=== PATIENT | female | born 2000 | race Caucasian/White ===

== ENCOUNTER 2022-10-31 15:30 | Emergency (ER) | payer OTHER ==
[~2022-10-31] VITALS: Ht 154.9 cm; Wt 50.9 kg
[~2022-10-31 15:30] MED LIST: REGLAN 10MG10 MG/TAB PO; UNISOM25 MG PO
[2022-10-31 15:48] VITALS: BP 100/66; PULSE 107; TEMP 98.2
[2022-10-31 16:38] LABS: COLLECTION METHOD CLEAN CATCH
[2022-10-31 16:49] LABS: BASO # 0.1 K/mm3 (0.0-0.2); BASO % 0.3 % (0.0-2.0); EOS # 0.1 K/mm3 (0.0-0.7); EOS % 0.4 % (0.0-4.0); GRAN # 12.2 K/mm3 (1.4-6.5); GRAN % 78.2 % (42.2-75.2); HEMATOCRIT 37.5 % (35.0-45.0); LYMPH # 2.3 K/mm3 (1.2-3.4); LYMPH % 14.8 % (20.0-51.0); MEAN CELL VOLUME 91 fl (80.0-95.0); MEAN CORPUSCULAR HEMOGLOBIN 32 pg (26-32); MEAN CORPUSCULAR HGB CONC 35 g/dl (33.0-37.0); MEAN PLATELET VOLUME 9.6 fl (7.4-10.4); MONO # 0.9 K/mm3 (0.1-0.6); MONO % 5.5 % (1.7-9.3); PLATELET COUNT 358 K/mm3 (130-400); RED BLOOD COUNT 4.11 M/mm3 (4.10-5.30); REDCELL DISTRIBUTION WIDTH-CV 13.1 % (11.5-14.5)
[2022-10-31 16:54] LABS: PH >= 9.0 (5.0-8.5); URINE APPEARANCE Clear (CLEAR/HAZY); URINE BLOOD Negative (NEGATIVE); URINE COLOR Yellow (YELLOW); URINE GLUCOSE Negative (NEGATIVE); URINE KETONE 4+ (NEGATIVE); URINE NITRATE Negative (NEGATIVE); URINE PROTEIN(semi-quant) 1+ (NEGATIVE)
[2022-10-31 16:55] LABS: MUCOUS Present (NOT PRESENT); SQUAMOUS EPITHELIAL 0-2 /hpf (0-10); URINE BACTERIA Rare /hpf (NONE SEEN); URINE RBC 0-2 /hpf (0-2)
[2022-10-31 17:16] LABS: ALBUMIN 3.3 gm/dL (3.5-5.0); BILIRUBIN,TOTAL 0.5 mg/dL (0.2-1.2); CALCIUM 9.2 mg/dL (8.4-10.2); CREATININE, serum 0.52 mg/dL (0.57-1.11); POTASSIUM 3.3 mmol/L (3.5-4.5); TOTAL PROTEIN 6.9 gm/dL (6.2-8.1)
== END 2022-10-31 18:20 | disposition home or self-care (01) ==
LOC: COL.ER 15:30
PROVIDERS: Physician Assistant
DX: O21.0 Mild hyperemesis gravidarum (principal); O99.112 Other diseases of the blood and blood-forming organs and certain disorders involving the immune mechanism complicating pregnancy, second trimester; D72.829 Elevated white blood cell count, unspecified; Z28.310 Unvaccinated for COVID-19; Z3A.26 26 weeks gestation of pregnancy
CPT/HCPCS: J2405; J7030

== ENCOUNTER 2022-11-06 22:42 | Outpatient (CLI) | payer OTHER ==
--- NOTE | 2022-11-06 22:50 | NUR ---
Ambulatory to unit for assessment, accompanied by spouse. Oriented to room, plan of care. Pt reports "I have Hyperemesis Gravidarum and I've had it since 4 1/2 weeks. I haven't kept anything down in 4 days. The nutrition services aide ob told me to drink small sips and try to make it til morning, but that didn't work. No-one is listening to me. I moved here from [place] because they werem't listening to me, said I couldn't have a Zofran pump" Explained to pt that I haven't seen a Zofran pump used for hyperemesis, but that it could happen, but not tonight. Pt with very flat affect. Asked about medications taken for nausea (see Pharmacy list) States that Reglan, Benadryl, and phenergan all trigger her anxiety and she doesn't want them.
[2022-11-06 23:10] VITALS: BP 93/64; PULSE 93; TEMP 98
[2022-11-06] MEDS ORDERED: PHENERGAN25 MG RC (23:51)
[2022-11-06] MEDS ORDERED: ZOFRAN ODT4 MG (23:53)
[2022-11-06] MEDS ORDERED: ZOFRAN ODT8 MG PO (23:54)
--- NOTE | 2022-11-07 00:05 | NUR ---
iIV fluids infused, to INT. Ice chips provided and encouraged
[2022-11-07 00:37] VITALS: BP 100/63
--- NOTE | 2022-11-07 00:37 | NUR ---
Tolerating ice chips without nausea stating "these are the best ice chips ever" 0040 IV dc'd. D045 Discharge instructions reviewed with pt and spouse. Pt encouraged to eat small snacks and fluids, take ZOFRaN. Pt states "I try to eat watermelon and cantoloupe they taste good. I'm going to use a phenergan suppository when i get home and go to bed." Discharged ambulatory off unit with spouse.
== END 2022-11-07 00:45 | disposition home or self-care (01) ==
LOC: LDRO 22:42
DX: O21.0 Mild hyperemesis gravidarum (principal); Z3A.27 27 weeks gestation of pregnancy
CPT/HCPCS: J2405; J7120

== ENCOUNTER 2022-11-26 11:00 | Outpatient (RCR) | payer OTHER ==
[2022-11-20 16:35] VITALS: BP 103/75; PULSE 98; TEMP 97.3
--- NOTE | 2022-11-20 17:27 | NUR ---
pt tolerates LR with zofran infusion well. her VS are within her normal limits and she is currently tolerating po apple juice. she dry-heaves occassionally during infusion and asked for a cold cloth to place on her neck. she is accompanied by her and ambulates independently. she is currently free from concerns and complaints.
[2022-11-24 14:01] VITALS: BP 90/59; PULSE 59; TEMP 97
[~2022-11-26] VITALS: Ht 154.9 cm; Wt 51.3 kg
[~2022-11-26 11:00] MED LIST changes: +PHENERGAN25 MG RC; +PRILOSEC 20MG20 MG PO; +ZOFRAN ODT4 MG; +ZOFRAN ODT8 MG PO
[2022-11-26 11:07] VITALS: BP 110/66; PULSE 99; TEMP 98
[2022-11-27] MEDS ORDERED: LEXAPRO 10MG10 MG PO (10:58)
[2022-11-27] MEDS ORDERED: LEXAPRO20 MG PO (10:59)
[2022-11-27] MEDS ORDERED: NEURIVA PLUS B1 EACH PO (10:59)
[2022-12-11] MEDS ORDERED: REGLAN 10MG10 MG/TAB PO (12:27)
[2022-12-11] MEDS ORDERED: PEPCID 20MG TAB20 MG PO (12:28)
[2022-12-11] MEDS ORDERED: BENADRYL25 M2 PO (12:28)
[2022-12-11] MEDS ORDERED: PHENERGAN25 MG RC (12:29)
[2022-12-11] MEDS ORDERED: VITAMIN B-6100 MG PO (12:30)
[2022-12-11] MEDS ORDERED: PRILOSEC 20MG20 MG PO (12:31)
== END 2022-12-04 16:22 | disposition home or self-care (01) ==
LOC: EUO 11:00
DX: Z51.81 Encounter for therapeutic drug level monitoring (principal)
CPT/HCPCS: J2405; J7120

== ENCOUNTER 2022-11-27 10:28 | Outpatient (CLI) | payer OTHER ==
[~2022-11-27] VITALS: Ht 154.9 cm; Wt 51.8 kg
--- NOTE | 2022-11-27 10:30 | NUR ---
Pt arrived on unit via wheelchair from ER with concerns for nausea, vomiting, constant lower abdominal pain and rib pain. Pt reports she received IV fluids a couple times a week due to hyperemesis in [facility]. She received her fluids yesterday, woke up feeling better this morning, took her regular morning medications and then started vomiting. Pt denies any contractions, leaking of fluid or vaginal bleeding and reports normal movement. EFM and toco monitors started. Vital signs WNL. Dr. Hernandez notified. See physician notification for details.
[2022-11-27] MEDS ORDERED: LEXAPRO 10MG10 MG PO (10:58)
[2022-11-27] MEDS ORDERED: NEURIVA PLUS B1 EACH PO (10:59)
[2022-11-27] MEDS ORDERED: LEXAPRO20 MG PO (10:59)
[2022-11-27 11:30] VITALS: BP 91/60; PULSE 116; TEMP 97.9
[2022-11-27 11:56] LABS: COLLECTION METHOD CLEAN CATCH
[2022-11-27 12:15] LABS: MUCOUS Present (NOT PRESENT); SQUAMOUS EPITHELIAL 0-2 /hpf (0-10); URINE BACTERIA Occasional /hpf (NONE SEEN); URINE RBC 0-2 /hpf (0-2)
[2022-11-27 12:16] LABS: PH 7.5 (5.0-8.5); URINE APPEARANCE Clear (CLEAR/HAZY); URINE BLOOD Negative (NEGATIVE); URINE COLOR Yellow (YELLOW); URINE GLUCOSE Negative (NEGATIVE); URINE KETONE 4+ (NEGATIVE); URINE NITRATE Negative (NEGATIVE); URINE PROTEIN(semi-quant) TRACE (NEGATIVE)
[2022-11-27 12:21] LABS: ALBUMIN 2.6 gm/dL (3.5-5.0); BILIRUBIN,TOTAL 0.4 mg/dL (0.2-1.2); CALCIUM 8.3 mg/dL (8.4-10.2); CREATININE, serum 0.5 mg/dL (0.57-1.11); POTASSIUM 3.3 mmol/L (3.5-4.5); TOTAL PROTEIN 5.6 gm/dL (6.2-8.1)
[2022-11-27 12:25] LABS: BASO % 0.3 % (0.0-2.0); EOS % 0.2 % (0.0-4.0); GRAN # 10.6 K/mm3 (1.4-6.5); HEMOGLOBIN 10.7 g/dl (12.0-15.0); LYMPH # 1.7 K/mm3 (1.2-3.4); LYMPH % 12.6 % (20.0-51.0); MEAN CELL VOLUME 93 fl (80.0-95.0); MEAN CORPUSCULAR HEMOGLOBIN 31 pg (26-32); MEAN CORPUSCULAR HGB CONC 34 g/dl (33.0-37.0); MEAN PLATELET VOLUME 10.7 fl (7.4-10.4); MONO # 0.6 K/mm3 (0.1-0.6); MONO % 4.6 % (1.7-9.3); PLATELET COUNT 345 K/mm3 (130-400); RED BLOOD COUNT 3.44 M/mm3 (4.10-5.30); REDCELL DISTRIBUTION WIDTH-CV 12.3 % (11.5-14.5)
[2022-11-27 12:30] VITALS: BP 92/55; PULSE 99
[2022-11-27 12:39] LABS: HEMATOCRIT 31.9 % (35.0-45.0)
[2022-11-27 13:00] VITALS: BP 83/51; PULSE 110
[2022-11-27 13:30] VITALS: BP 84/52; PULSE 115
--- NOTE | 2022-11-27 13:50 | NUR ---
Dr. Hernandez on the unit. Update given. FHR tracing reviewed. Orders for discharge home received.
[2022-11-27 14:00] VITALS: BP 84/50; PULSE 109
[2022-11-27 14:30] VITALS: BP 91/53; PULSE 110; TEMP 97.9
--- NOTE | 2022-11-27 14:45 | NUR ---
ALL DC PAPERWORK REVIEWED AND UNDERSTOOD. PT ENCOURAGED TO TAKE NAUSEA MEDICATION ON A SCHEDULED REGIMEN AT HOME, WELL CHEW PEPPERMINT GUM, AND CONTINUE ON HER ANTACIDS ORDERED. PT STATES SHE STARTED "PEPCID" YESTERDAY AND IT SEEMED TO HELP. PT DENIES FURTHER QUESTIONS OR CONCERNS. CATEGORY 1 EFM TRACING. NO CONTRACTIONS NOTED. PT HYPOTENSIVE AT BASELINE THROUGHOUT ALL OF OUTPATIENT STAY, BUT STABLE AND ASYMPOMATIC. PT DISCHARGED VIA WHEELCHAIR ESCORTED BY THIS RN AND FOB/SPOUSE.
== END 2022-11-27 14:45 | disposition home or self-care (01) ==
LOC: LDRO 10:28
PROVIDERS: Obstetrics & Gynecology
DX: O21.0 Mild hyperemesis gravidarum (principal); Z3A.30 30 weeks gestation of pregnancy
CPT/HCPCS: J7120

== ENCOUNTER 2022-12-29 11:00 | Outpatient (RCR) | payer OTHER ==
[2022-12-11 12:04] VITALS: BP 86/48; PULSE 80
--- NOTE | 2022-12-11 12:06 | NUR ---
2 IV attempts by this nurse to left hand. During second attempt, pt c/o pain with attempted flush. Catheter is removed. Pt begins to hyperventilate, proceeding to c/o hands and feet tingeling and feeling lightheaded. Recliner is laid back, ice pack provided and pt coached to slow breathing. Symptoms improve after several mins. SAM Zelaya in to attempt IV start.
[2022-12-11 12:25] VITALS: BP 91/59; PULSE 75; TEMP 98.2
--- NOTE | 2022-12-11 12:38 | NUR ---
IVF infusing. Pt resting comfortably. No further c/o lightheadedness or tingeling. She is able to answer questions appropriately. HX and meds reviewed. Message left at [facility] to inform them pt may be running a few mins late to her 1330 appt.
--- NOTE | 2022-12-11 13:35 | NUR ---
Pt feeling better after fluids and zofran. IV DC'd, site wrapped with coban. Pt assisted out to 's car by wheelchair. She refused food or fluid while in dept, stating had food for her.
[2022-12-18 12:48] VITALS: BP 103/71; PULSE 90; TEMP 98.3
--- NOTE | 2022-12-18 15:37 | NUR ---
Pt discharged at approx 1430. she tolerated Zofran/fluid bolus well and was free from concerns and complaints at time of discharge. pt tolerated po fluids during infusion. Pt verbalized when her next appointment will be. Pt's IV was started by Cecy VARGAS RN.
[2022-12-22 12:30] VITALS: BP 103/60; PULSE 93; TEMP 97
[~2022-12-29] VITALS: Ht 154.9 cm; Wt 48.9 kg
[~2022-12-29 11:00] MED LIST changes: +BENADRYL25 M2 PO; +LEXAPRO 10MG10 MG PO; +LEXAPRO20 MG PO; +NEURIVA PLUS B1 EACH PO; +PEPCID 20MG TAB20 MG PO; +VITAMIN B-6100 MG PO
[2022-12-29 11:25] VITALS: BP 114/78; PULSE 112; TEMP 97.4
--- NOTE | 2022-12-29 12:00 | NUR ---
pt discharged at approx 1245. She ambulated independently to the main lobby following infusion. Pt verbalized concern over today's weight stating that she has lost five pounds in the last three days. Pt verbalized that she has tried to get ahold of Dr. Hernandez's office for the last few days but no one has returned her calls. I called on her behalf today and have not heard back from office yet. Pt stated that she will continue to reach out to [facility] for a response. Pt tolerated infusion well and IV was removed upon discharge.
--- NOTE | 2023-01-01 11:09 | NUR ---
Pt called to cancel apt for today.Per pt report she was in L and D yesterday for IV fluids.Per pt report she does not want fluids today.Confirmed scheduled apt for January 06 at 1100.
== END 2023-01-06 09:53 | disposition home or self-care (01) ==
LOC: EUO 11:00
DX: Z79.899 Other long term (current) drug therapy (principal)
CPT/HCPCS: J2405; J7120

== ENCOUNTER 2023-01-08 15:20 | Outpatient (CLI) | payer OTHER ==
[~2023-01-08] VITALS: Ht 154.9 cm; Wt 54.1 kg
--- NOTE | 2023-01-08 15:30 | NUR ---
PERSONNEL RESEARCH SCIENTIST RECIEVED CALL TO GET PATIENT FROM EMERGENCY ENTRANCE. PATIENT WHEELED TO UNIT BY PASCUAL. PATIENT REPORTS TO PASCUAL SHE FEELS THAT SOMETHING IS WRONG. PATIENT ORIENTED TO LABOR ROOM 3 AND ASSISTED INTO GOWN. PATIENT REPORTS TO THIS RN SHE IS FEELING LIKE SOMEHTING IS WRONG AND SHE DOESN'T KNOW WHAT. PATIENT APPEARS ANXIOUS AND IS ASKING ABOUT MANY DIAGONESES AT THIS TIME. PATIENT REASSURED THAT LAB RESULTS WOULD REFLECT THE DISCUSSED DIAGNOSES. PATIENT DENIES LEAKING OF FLUID, VAGINAL BLEEDING OR CONTRACTIONS, GOOD MOVEMENT. PATIENT REFUSES LR INFUSION AND IV ZOFRAN AT THIS TIME. PHYSICIAN ORDERS LIPASE, UA AND TSH LEVEL TO RULE OUT OTHER CAUSES OF THESE FEELINGS. EFM AND TOCO PLACED AND TRACING WELL.
[2023-01-08 16:00] VITALS: BP 112/82; PULSE 100; TEMP 97.8
[2023-01-08 16:04] LABS: COLLECTION METHOD CLEAN CATCH
[2023-01-08 16:11] LABS: MUCOUS Present (NOT PRESENT); URINE APPEARANCE Turbid (CLEAR/HAZY); URINE BACTERIA Rare /hpf (NONE SEEN); URINE BLOOD Negative (NEGATIVE); URINE COLOR Yellow (YELLOW); URINE GLUCOSE Negative (NEGATIVE); URINE KETONE 4+ (NEGATIVE); URINE NITRATE Negative (NEGATIVE); URINE PROTEIN(semi-quant) 1+ (NEGATIVE); URINE RBC 0-2 /hpf (0-2); URINE UROBILINOGEN 0.2 E.U/dL (0.2-1.0)
[2023-01-08 16:30] VITALS: BP 110/71; PULSE 102
[2023-01-08 16:53] LABS: THYROID STIMULATING HORMONE 2.278 uIU/mL (0.350-4.940)
[2023-01-08 17:00] VITALS: BP 104/70; PULSE 85
[2023-01-08 17:30] VITALS: BP 109/75; PULSE 86
--- NOTE | 2023-01-08 17:55 | NUR ---
PATIENT OFF UNIT VIA WHEELCHAIR WITH .
== END 2023-01-08 17:55 | disposition home or self-care (01) ==
LOC: LDRO 15:20
PROVIDERS: Obstetrics & Gynecology
DX: O21.0 Mild hyperemesis gravidarum (principal); Z3A.36 36 weeks gestation of pregnancy
CPT/HCPCS: J0702

== ENCOUNTER 2023-01-09 17:05 | Outpatient (CLI) | payer OTHER ==
[~2023-01-09] VITALS: Ht 154.9 cm; Wt 54.0 kg
== END 2023-01-09 18:05 | disposition home or self-care (01) ==
LOC: LDRO 17:05
DX: O21.0 Mild hyperemesis gravidarum (principal); Z3A.00 Weeks of gestation of pregnancy not specified
CPT/HCPCS: J0702

== ENCOUNTER 2023-12-04 06:40 | Day surgery (SDC) | payer OTHER ==
[~2023-12-04] VITALS: Ht 154.9 cm; Wt 41.3 kg
[~2023-12-04 06:40] MED LIST changes: +IBU600 MG PO; +LR 1,000 ML IV SCH; +Ondansetron 4 MG/2 ML VIAL IV PRN; +TYLENOL 500MG500 MG PO
[2023-12-04] MEDS ORDERED: Lidocaine PF 2% (20 MG/ML) 5 ML VIAL ONE ×2 (08:28→08:45)
[2023-12-04 09:35] VITALS: BP 103/67; PULSE 75; TEMP 98.1
[2023-12-04 09:50] VITALS: BP 99/70; PULSE 74
[2023-12-04 10:05] VITALS: BP 107/54; PULSE 74
--- NOTE | 2023-12-04 12:20 | NUR ---
[id number]: PT TO RECOVERY BAY FROM ENDO [facility] S/P EGD WITH BX'S A&O, PLACED ON MONITOR, VSS ON RA DENIES COMPLAINT RECEIVED REPORT AND ASSUMED CARE OF PT FROM ENDO ICE CREAM MAKER AT BEDSIDE PROVIDED FOOD/FLUIDS, TOLERATING WELL PT HAS REMAINED A&O, NAD, VSS ON RA, TOLERATING PO, IS WITHOUT SIGNIFICANT COMPLAINT, WITH STEADY GAIT BY THE END OF STAY IV D/C'D. D/C INSTRUCTIONS, FOLLOW UP REVIEWED AND HANDED TO PT. ALL QUESTIONS AND CONCERNS ADDRESSED TO PT SATISFACTION. TAKEN TO EXIT VIA W/C WITH ALL BELONGINGS AND PAPERWORK IN HAND, ASSISTED INTO PASSENGER SEAT OF POV. FAMILY TO DRIVE HOME.
[2023-12-04 12:48] VITALS: BP 98/75; PULSE 86; TEMP 97.9
--- NOTE | 2023-12-04 12:52 | NUR ---
0728 Patient ambulatory to bay 6 with steady gait, breathing even and unlabored. Pt is alert and oriented. Consents reviewed and signed by the patient. IV established. LR infusion via gravity at KVO. Call light in reach. Warm blanket provided.
== END 2023-12-04 10:45 | disposition home or self-care (01) ==
LOC: SDCO 06:40
DX: K29.50 Unspecified chronic gastritis without bleeding (principal); K29.80 Duodenitis without bleeding; K25.9 Gastric ulcer, unspecified as acute or chronic, without hemorrhage or perforation; K59.00 Constipation, unspecified; R63.4 Abnormal weight loss; Z87.891 Personal history of nicotine dependence
CPT/HCPCS: J2704